=== PATIENT | male | born 1940 ===

== ENCOUNTER 2019-05-13 02:29 | Inpatient (IN) | payer MEDICARE, BC ==
[2019-05-13] MEDS ORDERED: Morphine 4 MG/ML VIAL (1 ml) 4 MG/ML VIAL IV ONE ×2 (03:04→07:35)
[2019-05-13] MEDS ORDERED: Ondansetron INJ* 2 MG/ML VIAL IV ONE (03:04)
[2019-05-13] MEDS ORDERED: NS 0.9% 1000 ML** 1,000 ML IV ONE (03:04)
--- NOTE | 2019-05-13 03:12 | ED ---
GI/ HPI - HPI Summary HPI Summary: This patient is a 78 year old M presenting to [facility] accompanied by with a chief complaint of abdominal pain since [id number] on 05/12/19. Pt reports complains of gas and that he drank milk and water to soothe his stomach. However , after going to bed, the gas and pain became periodic every 30 minutes. Pt thought symptoms were alleviating however, when he laid down, Sx worsened. Pt had two bowel movements today, one this morning and one in the late afternoon. He reports two episodes of vomiting today as well. Pt has a PMHx of an SBO from 6-7 years ago, however he did not receive surgery and was told to come to the ED if the pain repeated. Pt has a PSHx of umbilical hernia repairs. - History of Current Complaint Chief Complaint: EDAbdPain Time Seen by Provider: 05/13/19 02:55 Stated Complaint: STOMACH PAIN PER PT Hx Obtained From: Patient Onset/Duration: Started Hours Ago - began around 21:30, Still Present Timing: Intermittent - every 30 minutes, Lasting Hours Severity: Moderate Current Severity: Moderate Pain Intensity: 4 Location of Pain: Diffuse Associated Signs and Symptoms: Positive: Nausea, Vomiting, Other: - no constipation - Allergy/Home Medications Allergies/Adverse Reactions: Allergies Allergy/AdvReac Type Severity Reaction Status Date / Time Adhesive Tape Allergy Hives Verified 05/13/19 02:36 Penicillins Allergy Hives Verified 05/13/19 02:36 PMH/Surg Hx/FS Hx/Imm Hx Endocrine/Hematology History: Denies: Hx Diabetes Cardiovascular History: Denies: Hx Hypertension - Surgical History Surgical History: Yes Surgery Procedure, Year, and Place: Umbilical Hernia Repair Infectious Disease History: No Infectious Disease History: Reports: Traveled Outside the [place] in Last 30 Days - [facility] - Family History Known Family History: Negative: Hypertension, Diabetes - Social History Alcohol Use: Occasionally Substance Use Type: Reports: None Smoking Status (MU): Former Smoker Review of Systems Negative: Fever Gastrointestinal: Other - negative - constipation Positive: Abdominal Pain, Vomiting, Other - Positive: gas All Other Systems Reviewed And Are Negative: Yes Physical Exam - Summary Physical Exam Summary: VITAL SIGNS: Reviewed. GENERAL: Patient is a well-developed and nourished male who is lying comfortable in the stretcher. Patient is not in any acute respiratory distress. HEAD AND FACE: No signs of trauma. No ecchymosis, hematomas or skull depressions. No sinus tenderness. EYES: PERRLA, EOMI x 2, No injected conjunctiva, no nystagmus. EARS: Hearing grossly intact. Ear canals and tympanic membranes are within normal limits. MOUTH: Oropharynx within normal limits. NECK: Supple, trachea is midline, no adenopathy, no JVD, no carotid bruit, no c- spine tenderness, neck with full ROM CHEST: Symmetric, no tenderness at palpation LUNGS: Clear to auscultation bilaterally. No wheezing or crackles. CVS: Regular rate and rhythm, S1 and S2 present, no murmurs or gallops appreciated. ABDOMEN: Soft, diffuse abdominal tenderness, mainly in upper abdomen. Abdominal distention is noted. No rebound no guarding, and no masses palpated. Hyperactive bowel sounds appreciated. EXTREMITIES: FROM in all major joints, no edema, no cyanosis or clubbing. NEURO: Alert and oriented x 3. No acute neurological deficits. Speech is normal and follows commands. SKIN: Dry and warm Triage Information Reviewed: Yes Vital Signs On Initial Exam: Initial Vitals Temp Pulse Resp BP Pulse Ox 97 F 89 18 123/80 93 05/13/19 02:31 05/13/19 02:31 05/13/19 02:31 05/13/19 02:31 05/13/19 02:31 Vital Signs Reviewed: Yes Diagnostics - Vital Signs Vital Signs Temp Pulse Resp BP Pulse Ox 05/13/19 02:52 77 05/13/19 02:31 97 F 89 18 123/80 93 - Laboratory Result Diagrams: 05/13/19 03:14 05/13/19 03:14 Lab Statement: Any lab studies that have been ordered have been reviewed, and results considered in the medical decision making process. - Radiology CXR Radiology Interpretation Completed By: ED Physician Summary of Radiographic Findings: CXR reveals low volume, no acute infiltrate, pending official report. ABDOMINAL X-RAY Radiology Interpretation Completed By: ED Physician Summary of Radiographic Findings: Abd X-ray reveals dilated small bowel loops, with airflow level consistent with small bowel obstructive, pending official report - CT ABD/Pel CT CT Interpretation Completed By: Radiologist Summary of CT Findings: ABD/Pel CT reveals IMPRESSION: 1. Dilatation of distal small bowel loop containing fecal material, more compatible with high grade small bowel obstruction secondary to adhesion to the ventral hernia repair. 2. Enlarged prostate gland. 3. Hepatic cysts with the largest one measuring 1.8 cm. ED physician has reviewed this report. GIGU Course/Dx - Course Course Of Treatment: This patient is a 78 year old M presenting to [facility] accompanied by with a chief complaint of abdominal pain since [id number] on 05/12/19. Pt reports complains of gas and that he drank milk and water to soothe his stomach. However, after going to bed, the gas and pain became periodic every 30 minutes. Pt thought symptoms were alleviating however, when he laid down, Sx worsened. Pt had two bowel movements today, one this morning and one in the late afternoon. He reports two episodes of vomiting today as well. Pt has a PMHx of an SBO from 6-7 years ago, however he did not receive surgery and was told to come to the ED if the pain repeated. Pt has a PSHx of umbilical hernia repairs. Physical exam is normal except for diffuse abdominal tenderness mainly in upper abd, hyperactive bowl sounds, and distension in abdomen. CXR reveals low volume, no acute infiltrate, pending radiologist's findings. Abd X-ray reveals dilated small bowel loops, with airflow level consistent with small bowel obstructive. Blood work obtained. The abnormal results include 12.1, MPV 7.0, Absolute Neuts (auto) 10.9, Absolute Lymphs (auto ) 0.7, Chloride 100, BUN 28, Creatinine 1.41, Glucose 160, Amylase 25. ABD/Pel CT reveals IMPRESSION: 1. Dilatation of distal small bowel loop containing fecal material, more compatible with high grade small bowel obstruction secondary to adhesion to the ventral hernia repair. 2. Enlarged prostate gland. 3. Hepatic cysts with the largest one measuring 1.8 cm. During ED course pt received morphine 4 Mg/Ml vial 4 mg IV, Zofran Inj 8 mg IV, and fluids. At 0619 consulted with surgeon, Dr Castanon, who will come see the patient. Pt is signed out to Dr Curtis at 0700 05/13/19 shift change pending surgical evaluation of this pt. - Diagnoses Provider Diagnoses: Small bowel obstruction - Physician Notifications Discussed Care Of Patient With: Jovon Castanon Time Discussed With Above Provider: 06:19 - Consult with surgeon, Dr Castanon will come see the patient Instructed by Provider To: Other - At 0612 radiologist, Dr Devine communicated results of CT Abd/pel. At 0619 consulted with surgeon, Dr Castanon, who will come see the patient. Pt is signed out to Dr Curtis at 0700 05/13/19 shift change pending surgical evaluation of this pt. Discharge - Sign-Out/Discharge Documenting (check all that apply): Sign-Out Patient Signing out patient TO: Buck Curtis - Discharge Plan Referrals: Joe Romeo MD [Primary Care Provider] - - Attestation Statements Document Initiated by Scribe: Yes Documenting Scribe: AMARJIT LO Provider For Whom Scribe is Documenting (Include Credential): TAYLOR COOPER MD Scribe Attestation: I, AMARJIT LO, scribed for TAYLOR COOPER MD on 05/13/19 at 0710. Status of Scribe Document: Ready
[2019-05-13 03:22] LABS: ABS Eosinophils 0.1 10^3/ul (0-0.6); ABS Lymphocytes 0.7 10^3/ul (1.0-4.8); ABS Monocytes 0.4 10^3/ul (0-0.8); ABS Neutrophils 10.9 10^3/ul (1.5-7.7); Eosinophil % 0.5 %; Hematocrit 45 % (42-52); Hemoglobin 15.1 g/dL (14.0-18.0); Lymphocyte % 5.7 %; Mean Corpuscular HGB Conc 33 g/dL (31-36); Mean Corpuscular Hemoglobin 31 pg (27-31); Mean Corpuscular Volume 93 fL (80-94); Platelet Count 237 10^3/uL (150-450); Red Blood Count 4.86 10^6 /uL (4.18-5.48); Red Cell Distribution Width 13 % (10-15); White Blood Count 12.1 10^3/uL (3.5-10.8)
[2019-05-13 03:28] LABS: Activated Partial Thrombo Time 31.4 seconds (26.0-38.0); INR 0.99 (0.82-1.09)
[2019-05-13 03:37] LABS: Albumin 4.2 g/dL (3.2-5.2); Albumin/Globulin Ratio 1.4 (1-3); BUN/Creatinine Ratio 19.9 (8-20); C Reactive Protein 1.33 mg/L (<8.01); Calcium 9.7 mg/dL (8.6-10.3); EGFR Non-African American 48.7 (>60); Globulin 3.1 g/dL (2-4); Magnesium 2.3 mg/dL (1.9-2.7); Potassium 4.1 mmol/L (3.5-5.0); Total Bilirubin 0.7 mg/dL (0.2-1.0); Total Protein 7.3 g/dL (6.4-8.9)
[2019-05-13] MEDS ORDERED: Iodixanol* (CONTRAST) 320 MG/ML 100 ML SDV IV ONE (04:19)
[2019-05-13 07:04] LABS: Urine Appearance Clear; Urine Bilirubin Negative (Negative); Urine Blood Negative (Negative); Urine Color Yellow; Urine Glucose Negative (Negative); Urine Ketones Negative (Negative); Urine Nitrite Negative (Negative); Urine Protein Negative (Negative); Urine Urobilinogen Negative (Negative)
--- NOTE | 2019-05-13 07:21 | ED ---
Progress - Progress Note Progress Note: Pt is received as a sign out to Dr. Curtis from Dr. Avitia at shift change 0700 pending a surgery consult for this SBO pt. Course/Dx - Course Course Of Treatment: Pt is received as a sign out to Dr. Curtis from Dr. Avitia at shift change 0700 05/13/19 pending a surgery consult for this SBO pt. Pt was seen by Dr. Castanon who agreed to admit the pt to surgery. - Diagnoses Provider Diagnoses: Small bowel obstruction - Provider Notifications Time Discussed With Above Provider: : - Consult with surgeon, Dr Castanon will come see the patient Instructed by Provider To: Other - At 0612 radiologist, Dr Devine communicated results of CT Abd/pel. At 0619 consulted with surgeon, Dr Castanon, who will come see the patient. Pt is signed out to Dr Curtis at 0700 05/13/19 shift change pending surgical evaluation of this pt. Discharge - Sign-Out/Discharge Documenting (check all that apply): Patient Departure Patient Received Moderate/Deep Sedation with Procedure: No - Discharge Plan Condition: Stable Disposition: ADMITTED TO [facility] - Attestation Statements Document Initiated by Scribe: Yes Documenting Scribe: Michael Rosa Provider For Whom Scribe is Documenting (Include Credential): Buck Curtis MD Scribe Attestation: Michael Day, scribed for Buck Curtis MD on 05/13/19 at 1307. Status of Scribe Document: Ready
[2019-05-13] MEDS ORDERED: HYDROmorphone INJ1* 1 MG/ML SYRINGE IV SLOW PU PRN (09:21)
[2019-05-13] MEDS ORDERED: NS 0.9% 1000 ML** 1,000 ML IV SCH (09:30)
--- NOTE | 2019-05-13 10:42 | HP ---
CC: [facility], Dr. Joe Romeo HISTORY AND PHYSICAL: DATE OF ADMISSION: 05/13/19 HISTORY OF PRESENT ILLNESS: Mr. Lea is a 78-year-old gentleman who presented to the emergency adela last night with complaints of colicky abdominal pain consistent with an obstruction the patient exp erienced back in 2009. Workup in the emergency room included labs and a CAT scan of the abdomen and pelvis, which was consistent with small bowel obstruction and my service was contacted. NG-tube was placed by the staff and approximately 800 cc of fluid was drained. The patient describes onset of symptoms yesterday evening starting with mid abdominal colicky pain th at came and went every 3 to 5 minutes. It was associated with nausea then multiple episodes of vomit ing. The patient's drove him to the emergency room where additional vomiting on the car ride he re and was worked up as described in the above paragraph. Currently, the patient has no pain. He did receive 1 dose of narcotics over the night. He is obstip ated and has been since yesterday. No bowel movements. He has no appetite. Pain at time of admissi on was centrally located nonradiating, now he does not have any. PAST MEDICAL HISTORY: Hypertension, BPH, and hypercholesterolemia. PAST SURGICAL HISTORY: Open umbilical hernia repair in November 2002. At that time, he also underwen t a groin hernia repair, open as well. He had an early recurrence requiring to be taken back to the operating room in October 2003 for a laparoscopic recurrent umbilical hernia repair with mesh. He w as noted to have 1.5 cm defect and a 4.6 composite mesh was placed laparoscopically. The patient had no complications postprocedure. Other than 2009 admission for obstruction that was promptly resolve d in a single day and the patient was discharged without surgery followup or consultation. Since the admission in 2009, the patient has been free of similar symptoms until this event. Additionally on surgical history is a left ankle surgery and reconstruction. MEDICATION LIST: Reviewed and includes: 1. Hydrochlorothiazide. 2. Flomax. 3. Simvastatin. 4. The patient also takes multivitamins. 5. He takes aspirin as needed for aches and pains, but not routinely. ALLERGIES: He is allergic to PENICILLIN. FAMILY HISTORY: Father of a brain lesion in his early 50s. Mother at the age of 92 with n o cardiac disease, but rather from a fall and development of pneumonia after pelvic fracture. SOCIAL HISTORY: He lives at home. He is retired former johnson as well as an educator. He is a nons moker. REVIEW OF SYSTEMS: No fevers or chills. No shortness of breath or chest pain. No cardiovascular di sease. Nausea and vomiting as described. Abdominal pain that has resolved. No dysuria, but does ta ke Flomax. Fair exercise tolerance. No endocrine disorders. No bleeding or clotting disorders. No psychiatric or neurologic diseases. PHYSICAL EXAMINATION GENERAL: He is afebrile. VITAL SIGNS: Stable. Blood pressure 127/84, but while I was in the room, he did blood pressure of 1 80/100. He is alert and oriented x3, in no apparent distress. HEAD, EYES, EARS, NOSE, THROAT: Normocephalic, atraumatic. Sclerae anicteric. Mucous membranes are moist. NECK: No lymphadenopathy. LUNGS: Clear. ABDOMEN: Soft, minimally distended, nontender. Well-healed surgical incisions. No ventral hernias o r groin hernia is noted. RECTAL: Exam without lesion. Guaiac is pending. EXTREMITIES: Intact with no edema or clubbing. DIAGNOSTIC STUDIES/LAB DATA: Labs reviewed show white count of 12. No left shift. Coagulation pane l normal. Creatinine on metabolic panel is 1.41. The patient's baseline is 1. LFTs within normal l imits. Mildly elevated glucose 160. Urinalysis within normal limits. CAT scan. Both images and report reviewed show mildly dilated loops of the small bowel that do colla pse. He does have air in stool and the colon, but this is also collapsed distally. Obvious tacks in the anterior abdominal wall from laparoscopic hernia repair, no free fluid. Dilated stomach. IMPRESSION: Small-bowel obstruction likely secondary to adhesions and the patient is improving with conservative management of NG tube and bowel rest. My recommendation is admission. Continue the NG- tube, repeat labs, IV hydration, hospitalist consult for evaluation of hypertension. I believe the p atient would benefit from change of medication from hydrochlorothiazide to one without a diuretic, as maybe the patient goes through dehydration episodes that exacerbate this. I discussed this all with the patient and his today, they understand the plan. [id number]/[facility] #: [id number]
[2019-05-13] MEDS: Lactated Ringers 1000 ML Bag* 1,000 ML IV SCH ×2 (11:30→18:37)
[2019-05-13] MEDS: Heparin VIAL(*) 5000 UNITS/ML VIAL (FIVE THOUSAND) SUBCUT SCH ×2 (14:15→22:44)
[2019-05-13 17:08] LABS: ABS Eosinophils 0.1 10^3/ul (0-0.6); ABS Lymphocytes 0.7 10^3/ul (1.0-4.8); ABS Monocytes 0.5 10^3/ul (0-0.8); ABS Neutrophils 7.1 10^3/ul (1.5-7.7); Eosinophil % 0.7 %; Hematocrit 45 % (42-52); Lymphocyte % 8.5 %; Mean Corpuscular HGB Conc 34 g/dL (31-36); Mean Corpuscular Hemoglobin 32 pg (27-31); Mean Corpuscular Volume 94 fL (80-94); Mean Platelet Volume 7.2 fL (7.4-10.4); Platelet Count 249 10^3/uL (150-450); Red Blood Count 4.75 10^6 /uL (4.18-5.48); Red Cell Distribution Width 13 % (10-15); White Blood Count 8.4 10^3/uL (3.5-10.8)
[2019-05-13 17:17] LABS: BUN/Creatinine Ratio 20.8 (8-20); Calcium 9.3 mg/dL (8.6-10.3); EGFR Non-African American 67.7 (>60); Potassium 4.4 mmol/L (3.5-5.0)
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
[2019-05-13] MEDS ORDERED: hydrALAZINE IV* 20 MG/ML VIAL IV SLOW PU PRN (19:42)
[2019-05-14] MEDS: Lactated Ringers 1000 ML Bag* 1,000 ML IV SCH ×2 (02:36→16:13)
[2019-05-14] MEDS: Heparin VIAL(*) 5000 UNITS/ML VIAL (FIVE THOUSAND) SUBCUT SCH ×3 (06:04→21:57)
--- NOTE | 2019-05-14 10:03 | PN ---
Progress Note - Progress Note Date of Service: 05/14/19 SOAP: Subjective: Pt seen and examined. Felling better today, no nausea, positive flatus Objective: Temp Pulse Resp BP Pulse Ox 99.2 F 87 16 148/75 93 05/14/19 07:56 05/14/19 07:56 05/14/19 07:56 05/14/19 07:56 05/14/19 07:56 Intake & Output 05/13/19 05/14/19 05/14/19 22:59 06:59 14:59 Intake Total 959 990 Output Total 505 255 300 Balance 454 735 -300 a and o x3, nad lungs cta abdo: soft/ ND/ NT axr reviewed Assessment: resolving SBO Plan: d/c ngt ice d/c possible tomorrow
--- NOTE | 2019-05-14 17:41 | PN ---
Subjective Date of Service: 05/14/19 Interval History: Patient feeling far improved. Nausea and vomiting have resolved and he's tolerating ice chips. He denies chest pain, difficulty breathing, headache, visual changes. Objective Active Medications: Heparin Sodium (Porcine) (Heparin Vial(*)) 5,000 units SUBCUT Q8HR [facility] Last Admin: 05/14/19 13:42 Dose: 5,000 units Hydralazine HCl (Apresoline Iv*) 5 mg IV SLOW PU Q6H PRN PRN Reason: Systolic Bp Greater Than:180 Hydromorphone HCl (Dilaudid Inj1s*) 0.5 mg IV SLOW PU Q1H PRN PRN Reason: PAIN - SEVERE Lactated Ringer's (Lactated Ringers 1000 Ml Bag*) 1,000 mls @ 125 mls/hr IV PER RATE [facility] Last Admin: 05/14/19 16:13 Dose: 125 mls/hr Vital Signs - 8 hr 05/14/19 05/14/19 11:47 15:20 Temperature 99.3 F 97.6 F Pulse Rate 72 75 Respiratory 18 18 Rate Blood Pressure 147/76 142/74 (mmHg) O2 Sat by Pulse 97 95 Oximetry Oxygen Devices in Use Now: None Appearance: Thin, elderly white male who appears younger than stated age laying in hospital bed appearing in NAD Eyes: No Scleral Icterus, PERRLA Ears/Nose/Mouth/Throat: Mucous Membranes Moist Neck: NL Appearance and Movements; NL JVP Respiratory: Symmetrical Chest Expansion and Respiratory Effort, Clear to Auscultation Cardiovascular: NL Sounds; No Murmurs; No JVD, RRR Abdominal: NL Sounds; No Tenderness; No Distention Extremities: No Edema, No Clubbing, Cyanosis Skin: No Rash or Ulcers Neurological: Alert and Oriented x 3, NL Muscle Strength and Tone Result Diagrams: 05/13/19 16:55 05/13/19 16:55 Microbiology and Other Data: Microbiology 05/14/19 10:36 Stool Occult Blood (MICHAEL) - Final Stool Assess/Plan/Problems-Billing Assessment: 78 yo white male with PMHx HTN, HLD, BPH who presents with nausea/vomiting and found to have a small bowel obstruction. General surgery consulted hospital medicine for new hypertensive medication as there was concern for HCTZ contributing to SBO. - Patient Problems (1) HTN (hypertension) Code(s): I10 - ESSENTIAL (PRIMARY) HYPERTENSION SNOMED Code(s): 49040296 Comment: -switched HCTZ to lisinopril 10 mg -normotensive -recommend following up with PCP, discussed checking BP and recording while at home before follow up with PCP (2) PETRONA (acute kidney injury) Code(s): N17.9 - ACUTE KIDNEY FAILURE, UNSPECIFIED SNOMED Code(s): 85408529 Comment: -Cr previously 1.14 -Cr now 1.06; PETRONA resolved (3) SBO (small bowel obstruction) Code(s): K56.609 - UNSP INTESTNL OBST, UNSP TO PARTIAL VERSUS COMPLETE OBST SNOMED Code(s): 832175255 Comment: -mgmt per gen surg -n/v resolved and tolerating ice chips (4) BPH (benign prostatic hyperplasia) Code(s): N40.0 - BENIGN PROSTATIC HYPERPLASIA WITHOUT LOWER URINRY TRACT SYMP SNOMED Code(s): 956813738 Comment: -holding home tamsulosin (5) Full code status Code(s): Z78.9 - OTHER SPECIFIED HEALTH STATUS SNOMED Code(s): 137543043 (6) DVT prophylaxis Code(s): Z29.9 - ENCOUNTER FOR PROPHYLACTIC MEASURES, UNSPECIFIED SNOMED Code( s): 584006886 Comment: -heparin subQ TID Status and Disposition: Thank you for allowing us to participate in the care of this patient. We will follow distantly for the remainder of this hospitalization. Feel free to ask any further questions if needed.
[2019-05-15] MEDS: Lactated Ringers 1000 ML Bag* 1,000 ML IV SCH ×2 (02:19→11:17)
[2019-05-15] MEDS: Heparin VIAL(*) 5000 UNITS/ML VIAL (FIVE THOUSAND) SUBCUT SCH ×2 (05:47→15:12)
--- NOTE | 2019-05-15 09:04 | PN ---
Progress Note - Progress Note Date of Service: 05/15/19 Note: S: No pain. Passing flatus and had BM. Chacha sips/chips. No N/V. O: Vital Signs - 8 hr 05/15/19 05/15/19 05/15/19 03:42 07:21 07:25 Temperature 98.5 F 98.1 F Pulse Rate 71 71 Respiratory 16 16 16 Rate Blood Pressure 138/77 158/76 (mmHg) O2 Sat by Pulse 92 94 Oximetry Intake and Output Last 24 Hours 05/13/19 05/14/19 05/15/19 05/16/19 06:59 06:59 06:59 06:59 Intake Total 2949 1965 240 Output Total 960 1680 250 Balance 1988 285 -10 Weight 180 lb 180 lb Intake: IV Fluids 2899 1965 LR 189 1965 Oral 0 0 240 NG Tube Irrigate Amount 50 Output: NG Tube Drainage Amount 130 Urine 830 1680 250 Other: # Bowel Movements 0 0 Estimated Stool Amount Medium Gen: sitting up in bed; appears comfortable Heart: reg Lungs: clear ant Abd: nondistended; +BS; soft; nontender to palp A: SBO, resolving P: full liq diet; d/c later this a.m.; office f/u w/ PCP (resume usual meds at this point)
[2019-05-15 11:17] VITALS: BP 145/78
--- NOTE | 2019-05-15 21:52 | DS ---
CC: Dr. Joe Romeo * DISCHARGE SUMMARY: DATE OF ADMISSION: 05/13/19 DATE OF DISCHARGE: 05/15/19 ATTENDING SURGEON: Dr. Jovon Castanon.* (DICTATED BY MEG MEDEIROS) HOSPITAL COURSE: Please refer to admission history and physical. The patient was admitted on 05/13/19 with history, exam, and imaging by CT that were consistent with small-bowel obstruction. Overnight, he had improvement with passage of flatus and improvement in pain. His abdominal pain still showed a pattern of small-bowel obstruction. He was started on sips of water and ice chips. Over the next 24 hours, his pain has resolved entirely. He has passed additional flatus as well as bowel movement this morning. He was advanced to a full liquid diet, which per nursing was well tolerated with additional bowel activity. See separate progress note from the same date. IMPRESSION: Small-bowel obstruction, improving. PLAN: Discharge home today with gradual advancement of diet over the next 3 to 5 days. He was seen by his PCP Dr. Romeo and for the present time we will continue his usual home medications with medical followup by Dr. Romeo. He was discharged to home in good condition. MEG MEDEIROS [id number]/[facility] #: [id number] MTDD
== END 2019-05-15 15:10 | disposition home or self-care (01) | DRG 390 ==
LOC: ED 02:29 → SSU 09:21
PROVIDERS: ADMIT Surgery; ATTEND Surgery
PROC: 0D9670Z Drainage of Stomach with Drainage Device, Via Natural or Artificial Opening (ICD-10-PCS; principal; 2019-05-13)
DX: K56.609 Unspecified intestinal obstruction, unspecified as to partial versus complete obstruction (principal); N40.0 Benign prostatic hyperplasia without lower urinary tract symptoms; E78.5 Hyperlipidemia, unspecified; K59.00 Constipation, unspecified; E78.00 Pure hypercholesterolemia, unspecified; I10 Essential (primary) hypertension; Z88.0 Allergy status to penicillin; Z91.048 Other nonmedicinal substance allergy status; Z87.891 Personal history of nicotine dependence; Z72.89 Other problems related to lifestyle; Z80.8 Family history of malignant neoplasm of other organs or systems
CPT/HCPCS: 36415; 71045; 74019; 74177; 80048; 80053; 81003; 82150; 82270; 83690; 83735; 85025; 85610; 85730; 86140; 99284; J1644; J2270; J2405; Q9967